=== PATIENT | female | born 2000 | race Caucasian/White ===

== ENCOUNTER 2023-06-08 16:59 | Emergency (ER) | payer BC, SELFPAY ==
[2023-06-08 17:00] VITALS: BP 164/98; PULSE 136; RESP 20; TEMP 36.4; O2SAT 100; BMI 22.0
[2023-06-08 17:16] VITALS: BP 131/87; PULSE 114; RESP 16; O2SAT 100
[2023-06-08 17:17] VITALS: O2SAT 95
--- NOTE | 2023-06-08 17:27 | EKG12_ITS ---
Test Reason : SOB Blood Pressure : / mmHG Vent. Rate : 106 BPM Atrial Rate : 106 BPM P-R Int : 146 ms QRS Dur : 078 ms QT Int : 318 ms P-R-T Axes : 075 084 048 degrees QTc Int : 422 ms Sinus tachycardia Nonspecific T wave abnormality Abnormal ECG Confirmed by DAVID PAYNE, KACY ([id number]), film editor BECK DURAN ([id number]) on 06/17/2023 9:18:33 AM Referred By: Confirmed By:KACY HERNANDEZ MD
--- NOTE | 2023-06-08 17:29 | EDS_ITS ---
HPI History of Present Illness Chief Complaint: Shortness of Breath Informant: patient Onset/Context/Timing Onset: Today (Approximately 30 minutes prior to arrival) Context: Sudden Onset Quality: Tightness Location: Chest Worsened by: Nothing Relieved by: Deep breathing Narrative Narrative: Patient presents with shortness of breath and chest pain that began today. Patient states it began rather suddenly. Patient states she feels like she has some tightness in her chest. Patient states when she is able to take some deep breaths and relax it feels better. Patient states nothing makes it worse. Patient admits to some subjective chills but denies any fevers. Patient states she did have an episode of nausea and vomiting earlier today. Patient admits to some pain in her neck but denies any pain in her back. Patient denies any cough. Patient admits to a family history of mother with VT at age 25. Patient is a smoker. [facility] Medical History no medical history no medical history Home Medications NK 06/08/23 [History Last Taken Unknown] Allergy/AdvReac Type Severity Reaction Status Date / Time No Known Allergies Allergy Verified 06/08/23 17:00 Surgical History no surgical history no surgical history Social History Smoking Status: Current every day smoker tobacco type: e-cigarettes ROS ROS ED Constitutional Constitutional ED: Reports chills and subjective; Denies fever(s) Eyes Eyes: Denies blurry vision or change in vision ENT ENT ED: Denies rhinorrhea or sore throat Cardiovascular Cardiovascular: Reports chest pain; Denies palpitations Respiratory/Chest Respiratory/Chest: Reports dyspnea; Denies cough Gastrointestinal Gastrointestinal: Reports nausea and vomiting Genitourinary Genitourinary ED: Denies dysuria or hematuria Musculoskeletal Musculoskeletal: Reports neck pain; Denies back pain Integumentary Denies abscess or rash Neurologic Neurologic: Denies headache(s) or weakness Allergic/Immunologic Allergic/Immunologic ED: Denies mouth swelling or urticaria EXAM Physical Exam Const Vital Signs: 06/08/23 17:00 06/08/23 17:16 06/08/23 17:17 Temperature 97.6 F L Temperature Source Temporal Pulse Rate 136 H 114 H Respiratory Rate 20 H 16 Respiratory Effort Short of Breath Respiratory Pattern Tachypnea Blood Pressure 164/98 H 131/87 H Blood Pressure Mean 120 101 Pulse Ox 100 100 Oxygen Delivery Method Room Air Room Air Room Air 06/08/23 17:52 Temperature Temperature Source Pulse Rate 101 H Respiratory Rate 16 Respiratory Effort Respiratory Pattern Normal Blood Pressure Blood Pressure Mean Pulse Ox Oxygen Delivery Method Positive well nourished and well developed General Appearance ED: well developed and NAD HEENT Reports moist mucous membranes Neck supple and no JVD Chest Wall inspection of chest normal Chest Narrative: There is reproducible tenderness over the chest wall along the sternal border bilaterally. There is no subcutaneous emphysema noted. There is no bony crepitance or step-off noted. Resp normal respiratory effort Auscultation: wheezes scattered wheezes (Mild) Cardio regular rhythm Rate: tachycardic GI non-tender and non-distended Palpation: soft Extremity normal to inspection General Extremety ED: Negative for edema or tenderness General Extremity: Negative for edema Neuro oriented x3, CN's II-XII intact bilaterally and no sensory deficits noted Sensorium / Orientation: alert Motor Exam: strength 5/5 throughout Psych mental status grossly normal Mood & Affect: anxious MDM MDM MDM Narrative Medical decision making narrative: Differential diagnosis includes asthma, pneumonia, cardiac dysrhythmia, cardiac ischemia, electrolyte abnormality, musculoskeletal pain, and anxiety. EKG will be obtained to assess for cardiac dysrhythmia and cardiac ischemia. Chest x-ray will be obtained to assess for pneumonia and pneumothorax. CBC will be obtained to assess for leukocytosis and anemia. Basic metabolic profile will be obtained to assess for electrolyte abnormality and renal function. High-sensitivity troponin will be obtained to assess for cardiac ischemia. Lab Data Attestation: I reviewed the patient's lab results. Lab results narrative: CBC was reviewed and was within normal limits. Basic metabolic profile was reviewed and showed a mild hypokalemia of 3.3. The remainder is within normal limits. High-sensitivity troponin was reviewed and was normal at 3. 2-hour repeat high-sensitivity troponin was reviewed and was normal at 4. Labs: Laboratory Results - last 24 hr 06/08/23 06/08/23 17:36 19:45 WBC 6.1 RBC 4.75 Hgb 13.6 Hct 41.0 MCV 86.3 MCH 28.6 MCHC 33.2 RDW Std Deviation 37.2 RDW Coeff of Antonio 11.9 Plt Count 280 MPV 9.5 Immature Gran % (Auto) 0.500 Neut % (Auto) 80.8 H Lymph % (Auto) 7.7 L Kinney % (Auto) 10.0 Eos % (Auto) 0.7 Baso % (Auto) 0.3 Absolute Neuts (auto) 4.9 Absolute Lymphs (auto) 0.47 L Nucleated RBC % 0 Differential Comment SCANNED Sodium 139 Potassium 3.3 L Chloride 108 H Carbon Dioxide 25.0 Anion Gap 6 BUN 6 L Creatinine 0.80 Estim Creat Clear Calc 113.16 Est GFR (MDRD) Af Amer 117 Est GFR (MDRD) Non-Af 97 BUN/Creatinine Ratio 7.5 L Glucose 113 H Calcium 9.3 Troponin I High Sens 3 4 Radiography Chest X-Ray - ED: 2 View, Read by ED Physician, Read by Radiologist and No Acute Disease Diagnostic Testing: Clinical Impression(s) from Imaging Studies Chest X-Ray 06/08/23 17:40 IMPRESSION: Normal x-ray examination of the chest. Electronically Signed: Jenna Baxter MD at 18:00 EST , PA and lateral chest x-ray was obtained. There are 2 views. On my independent interpretation, lung rojas are clear. There is normal cardiac silhouette. Bony thorax is normal. There is no acute process noted. Radiologist also interpreted the x-ray and agrees. EKG Initial EKG: Attestation: I personally reviewed and interpreted this EKG as follows: Interpretation: Sinus Tachycardia (106) and Non-Specific ST Changes Comments: EKG was obtained. On my independent interpretation, it showed a sinus tachycardia with a rate of 106. PA interval, QRS interval, and QTc intervals were all normal. [place] was normal. There are nonspecific ST-T wave changes. Prior EKG tracings: not available for review Prior: No Prior Treatment and Re-Evaluation :: Patient was given a DuoNeb aerosol here. Patient was advised of her findings. Patient is feeling better on reevaluation. Patient has a HEART score of 1. Patient was advised that this is low risk for acute cardiac event. Patient was instructed to follow-up with her primary care physician in 5 to 7 days. Patient was instructed return if worse in any way. Patient understood and was agreeable with the plan. All questions were answered. Discharge Plan Triage Chief Complaint: Shortness of Breath ED Provider: Bola Copeland Dx/Rx/DC Orders Clinical Impression: Dyspnea, Chest pain Instructions: ED Chest Pain, Uncertain Cause, ED Dyspnea Prescriptions: No Action NK Primary Care Provider: Care Physician,No Primary Referrals: NOT,DEFINED [Non-Staff] - 5-7 Days Disposition Disposition: Home, Self Care
--- NOTE | 2023-06-08 17:40 | RAD_ITS ---
STUDY: X-RAY CHEST REASON FOR EXAM: Female, 22 years old. Dyspnea TECHNIQUE: PA and lateral views of the chest. COMPARISON: None. FINDINGS: The lungs are clear and expanded. There is no demonstrated pleural abnormality. Normal size heart. Normal mediastinum and tremaine. Normal visualized pulmonary arteries. Normal visualized aortic arch and descending thoracic aorta. Normal visualized thoracic spine. Normal visualized ribs, clavicles, and shoulders. There is no demonstrated abnormality of the visualized soft tissue structures of the upper abdomen. RAD/Chest PA and Lateral IMPRESSION: Normal x-ray examination of the chest. Electronically Signed: Jenna Baxter MD at 18:[address] [facility] ,
[2023-06-08 17:43] LABS: Absolute Lymphocyte Count 0.47 X10^3/uL (0.83-4.51); Absolute Neutrophil Count 4.9 X10^3/uL (2.0-7.7); Basophil# 0.02 X10^3/uL; Basophil% 0.3 % (0-1); Eosinophil# 0.04 X10^3/uL; Eosinophils% 0.7 % (0-5); Hemoglobin 13.6 g/dL (12.0-15.0); Lymphocyte # 0.47 X10^3/ul (0.83-4.51); Lymphocyte % 7.7 % (19-41); Mean Corp Hgb Conc 33.2 g/dL (32-36); Mean Corpuscular Hgb 28.6 pg (27.0-32.0); Mean Corpuscular Volume 86.3 fL (81-99); Mean Platelet Vol. 9.5 fl (6.2-12.0); Monocyte# 0.61 X10^3/uL; NRBC Flagged by Analyzer 0 % (0-5); Neutrophil # 4.93 X10^3/uL (2.7-7.7); Neutrophil % 80.8 % (47-70); POSITIVE DIFFERENTIAL YES; Platelet Count 280 K/mm3 (150-450); RBC Distribution Width CV 11.9 % (11.6-14.6); RBC Distribution Width SD 37.2 fl (35.1-43.9); Red Blood Count 4.75 M/mm3 (4.2-5.4); White Blood Count 6.1 K/mm3 (4.4-11.0)
[2023-06-08] MEDS: Ipratropium/Albuterol Sulfate 3 ML AMPUL.NEB INHALATION (17:50)
[2023-06-08 17:52] VITALS: PULSE 101; RESP 16
[2023-06-08 17:55] LABS: Differential Indicated SCAN CRITERIA MET
[2023-06-08 18:11] LABS: Anion Gap 6 (5-15); BUN 6 mg/dL (7-18); BUN/Creat Ratio 7.5 RATIO (10-20); Calcium,Total 9.3 mg/dL (8.5-10.1); Chloride 108 mmol/L (98-107); EST Glomerular Filtration Rate 97 mL/min (>60); Est Glom Filt Rate - Afr Amer 117 mL/min (>60); Estimated Creatinine Clearance 113.16 ml/min; Glucose 113 mg/dL (74-106); Potassium 3.3 mmol/L (3.5-5.1); Sodium Level 139 mmol/L (136-145); Troponin-I HS (w/2H Reflex) 3 pg/mL (3.0-54.0)
[2023-06-08 18:13] LABS: Differential Comment SCANNED
[2023-06-08 19:39] LABS: Reflex Troponin-HS? (from REC) Y
[2023-06-08 20:11] LABS: Troponin-I HS 4 pg/mL (3.0-54.0)
[2023-06-08 20:35] VITALS: BP 132/97; PULSE 100; RESP 16; O2SAT 99
== END 2023-06-08 20:36 | disposition home or self-care (01) ==
PROVIDERS: Emergency Provider Emergency Medicine; Visit Provider Emergency Medicine
DX: R07.89 Other chest pain (principal); R06.02 Shortness of breath; F17.290 Nicotine dependence, other tobacco product, uncomplicated; Z82.49 Family history of ischemic heart disease and other diseases of the circulatory system
CPT/HCPCS: 71046; 80048; 84484; 85025; 93005; 94640; 99284; A4216